=== PATIENT | female | born 1950 | race Caucasian/White ===

== ENCOUNTER 2017-02-18 17:01 | Emergency (ER) | payer MEDICARE, OTHER ==
[2017-02-18 17:13] VITALS: RESP 20; TEMP 97.6
[2017-02-18] MEDS ORDERED: PROMETHAZINE HYDROCHLORIDE 25 MG/ML SOL IV ONE (17:22)
[2017-02-18] MEDS ORDERED: MECLIZINE HYDROCHLORIDE 12.5 MG TAB PO ONE (17:22)
[2017-02-18] MEDS ORDERED: SOLUMEDROL 125 MG/2 ML 125 MG/2 ML PDS IV ONE (17:22)
[2017-02-18] MEDS ORDERED: ALBUTEROL/IPRATROPIUM 1 VIAL SOL INH ONE (17:22)
[2017-02-18] MEDS ORDERED: SOLUMEDROL 125 MG/2 ML 125 MG/2 ML PDS ONE (17:27)
[2017-02-18] MEDS ORDERED: MECLIZINE HYDROCHLORIDE 12.5 MG TAB ONE (17:27)
[2017-02-18] MEDS ORDERED: ALBUTEROL/IPRATROPIUM 1 VIAL SOL ONE (17:27)
[2017-02-18] MEDS ORDERED: PROMETHAZINE HYDROCHLORIDE 25 MG/ML SOL ONE (17:27)
[2017-02-18 17:35] LABS: BASOPHILS % (AUTO) 0 % (0-3); EOSINOPHILS % (AUTO) 0 % (0-9); HEMATOCRIT 40 % (35-47); MEAN CORPUSCULAR HGB CONC 33.3 gm/dl (32.0-36.0); MEAN CORPUSCULAR VOLUME 87 fL (81-99); MONOCYTES % (AUTO) 4.4 % (0-12); NEUTROPHILS % (AUTO) 84.3 % (37-80)
[2017-02-18 17:44] LABS: POTASSIUM 3.8 mMol/L (3.5-5.1)
[2017-02-18 18:28] VITALS: PULSE 58
[2017-02-18 18:29] VITALS: BP 128/65; O2SAT 96
== END 2017-02-18 18:35 | disposition home or self-care (01) | DRG 149 ==
LOC: ED 17:01
DX: H81.10 Benign paroxysmal vertigo, unspecified ear (principal); J44.9 Chronic obstructive pulmonary disease, unspecified
CPT/HCPCS: 36415; 71045; 80048; 85025; 93005; 99285; J2550; J2930; J7620